=== PATIENT | female | born 1990 ===

== ENCOUNTER → 2018-12-28 | Outpatient (CLI) | payer OTHER ==
[2018-12-30 02:06] LABS: CHLAMYDIA TRACHOMATIS, NAA Negative (Negative); NEISSERIA GONORRHOEAE, NAA Negative (Negative)
== END | disposition home or self-care (01) ==
LOC: LAB SHORT 12:12 → LAB EV 12:12
PROVIDERS: Physician Assistant
DX: N39.0 Urinary tract infection, site not specified (principal); Z20.9 Contact with and (suspected) exposure to unspecified communicable disease
CPT/HCPCS: 87077; 87086; 87186; 87491; 87591

== ENCOUNTER → 2019-04-06 | Outpatient (CLI) | payer OTHER | LOC: LAB SHORT 11:30 → LAB 11:30 | DX: N89.8 Other specified noninflammatory disorders of vagina (principal); N94.89 Other specified conditions associated with female genital organs and menstrual cycle | CPT/HCPCS: 87070; 87205; 87529 ==

== ENCOUNTER → 2019-07-25 | Outpatient (CLI) | payer OTHER | LOC: LAB SHORT 16:39 → LAB 16:39 | DX: R30.9 Painful micturition, unspecified (principal) | CPT/HCPCS: 87086 ==

== ENCOUNTER → 2019-12-26 | Outpatient (CLI) | payer OTHER ==
[2019-12-26 18:09] LABS: Source, Urine Clean Catch
[2019-12-26 19:33] LABS: Bilirubin, Urine Neg (Neg); Blood, Urine Neg (Neg); Glucose Qualitative, Urine Neg (Neg); Ketones, Urine 1+ (Neg); Leukocyte Esterase, Urine Neg (Neg); Nitrite, Urine Neg (Neg); Protein, Urine Neg (Neg); Urobilinogen, Urine NORM (Normal)
[2019-12-26 19:42] LABS: Appearance, Urine Clear (Clear); Color, Urine Yellow (P-Yellow)
== END ==
LOC: LAB 18:06 → LAB SHORT 18:06
PROVIDERS: Registered Nurse Community Health
DX: Z32.01 Encounter for pregnancy test, result positive (principal); N91.2 Amenorrhea, unspecified
CPT/HCPCS: 81003; 87086

== ENCOUNTER → 2020-01-03 | Outpatient (CLI) | payer OTHER ==
[2020-01-05 04:08] LABS: CHLAMYDIA TRACHOMATIS, NAA Negative (Negative); NEISSERIA GONORRHOEAE, NAA Negative (Negative)
== END ==
LOC: PLD 18:02 → LAB SHORT 18:02
PROVIDERS: Registered Nurse Community Health
DX: Z36.89 Encounter for other specified antenatal screening (principal)
CPT/HCPCS: 84702; 87491; 87591; G0123

== ENCOUNTER 2020-01-13 00:10 | Day surgery (SDC) | payer OTHER ==
--- NOTE | 2020-01-13 15:05 | NUR ---
PT TOOK ORAL ZOFRAN 8MG PRIOR TO VISIT TODAY.
--- NOTE | 2020-01-13 15:42 | NUR ---
PT UP TO BR. WANTS BANANA BAG STOPPED. PT WITH SUDDEN NAUSEA AND SHARP HEADACHE. UP TO BR AND VOIED. BACK TO RECLINER TO REST.
== END 2020-01-13 16:32 | disposition home or self-care (01) ==
LOC: ATC 00:10
DX: Z34.91 Encounter for supervision of normal pregnancy, unspecified, first trimester (principal); Z88.5 Allergy status to narcotic agent; Z88.0 Allergy status to penicillin; Z91.040 Latex allergy status; Z88.8 Allergy status to other drugs, medicaments and biological substances; Z3A.00 Weeks of gestation of pregnancy not specified
CPT/HCPCS: 96360; 96361; 96375; J2405; J3411; J3475; J7042; J7120

== ENCOUNTER 2020-01-20 00:18 | Day surgery (SDC) | payer OTHER | END 2020-01-20 16:20 | disposition home or self-care (01) | LOC: ATC 00:18 | DX: Z34.91 Encounter for supervision of normal pregnancy, unspecified, first trimester (principal); Z3A.01 Less than 8 weeks gestation of pregnancy; Z88.5 Allergy status to narcotic agent; Z88.0 Allergy status to penicillin; Z91.040 Latex allergy status | CPT/HCPCS: 96361; 96374; J2405; J7120 ==

== ENCOUNTER → 2020-04-03 | Outpatient (CLI) | payer OTHER ==
[~2020-04-03] MED LIST: ACYC400 PO; Acetaminophen325 M1 PO; BUSP10 PO; DOCU100 PO; PRENATAL TABLE1 EAC2 PO; TUMS500 MG PO
[2020-04-05 06:08] LABS: HBSAG SCREEN Negative (Negative)
== END ==
LOC: LAB SHORT 18:40 → LAB 18:40
PROVIDERS: Registered Nurse Community Health
DX: Z34.90 Encounter for supervision of normal pregnancy, unspecified, unspecified trimester (principal)
CPT/HCPCS: 86592; 86762; 87340

== ENCOUNTER 2020-07-06 00:26 | Day surgery (SDC) | payer OTHER ==
[2020-07-06] MEDS ORDERED: ACYC400 PO (08:18)
[2020-07-06] MEDS ORDERED: Acetaminophen325 M1 PO (08:18)
[2020-07-06] MEDS ORDERED: BUSP10 PO (08:19)
[2020-07-06] MEDS ORDERED: PRENATAL TABLE1 EAC2 PO (08:19)
[2020-08-28] MEDS ORDERED: TUMS500 MG PO (13:52)
[2020-08-28] MEDS ORDERED: DOCU100 PO (13:52)
== END 2020-07-06 09:17 | disposition home or self-care (01) ==
LOC: ATC 00:26
DX: O99.343 Other mental disorders complicating pregnancy, third trimester (principal); F31.9 Bipolar disorder, unspecified; O24.419 Gestational diabetes mellitus in pregnancy, unspecified control; Z3A.30 30 weeks gestation of pregnancy
CPT/HCPCS: 96360; J7120

== ENCOUNTER 2020-07-13 19:47 | Emergency (ER) | payer OTHER ==
[~2020-07-13] VITALS: Ht 162.6 cm; Wt 77.1 kg
[~2020-07-13 19:47] MED LIST changes: -DOCU100 PO; -TUMS500 MG PO
[2020-08-28] MEDS ORDERED: TUMS500 MG PO (13:52)
[2020-08-28] MEDS ORDERED: DOCU100 PO (13:52)
== END 2020-07-13 22:53 | disposition home or self-care (01) ==
LOC: ER 19:47
DX: K08.89 Other specified disorders of teeth and supporting structures (principal); Z79.899 Other long term (current) drug therapy; Z91.040 Latex allergy status; Z88.0 Allergy status to penicillin
CPT/HCPCS: 99282

== ENCOUNTER → 2020-08-06 | Outpatient (CLI) | payer OTHER ==
[~2020-08-06] MED LIST changes: +DOCU100 PO; +TUMS500 MG PO
== END ==
LOC: LAB SHORT 17:20 → PLD 17:20
DX: Z34.91 Encounter for supervision of normal pregnancy, unspecified, first trimester (principal)
CPT/HCPCS: 87081; 87150

== ENCOUNTER → 2022-02-20 | Outpatient (CLI) | payer OTHER ==
[2022-02-20 10:42] LABS: BASOPHILS PERCENT AUTO 0 % (0-2); EOSINOPHILS PERCENT AUTO 0 % (0-6); Hematocrit 45.5 % (33.0-51.0); Hemoglobin 15.4 g/dL (11.5-16.0); IMMATURE GRAN ABSOLUTE AUTO 0.02 K/mm3 (0.00-0.10); IMMATURE GRAN PERCENT AUTO 0 % (0-1); LYMPHOCYTES ABSOLUTE AUTO 0.34 K/mm3 (0.84-5.20); LYMPHOCYTES PERCENT AUTO 6 % (21-46); MONOCYTES ABSOLUTE AUTO 0.28 K/mm3 (0.16-1.47); MONOCYTES PERCENT AUTO 5 % (4-13); Mean Corpuscular HGB 30.6 pg (26.0-34.0); Mean Corpuscular HGB Conc 33.8 g/dL (31.5-36.5); Mean Corpuscular Volume 90 fL (80-100); Mean Platelet Volume 11.4 fL (9.1-12.4); NEUTROPHILS ABSOLUTE AUTO 4.85 K/mm3 (1.96-9.15); NEUTROPHILS PERCENT AUTO 88 % (41-73); Platelet Count 220 K/mm3 (150-400); RDW Coefficient Variation 12.9 % (11.7-14.2); RDW Standard Deviation 42.4 fL (35.1-46.3); Red Blood Cell Count 5.04 M/mm3 (3.80-5.20); White Blood Cell Count 5.49 K/mm3 (4.00-11.30)
[2022-02-20 10:43] LABS: Albumin, Blood 4.2 g/dL (3.4-5.0); Albumin/Globulin Ratio 1.1 (0.8-1.8); Bilirubin, Total 0.7 mg/dL (0.1-1.0); Bun/Creatinine Ratio 25.3 (12.0-20.0); Calcium, Blood 8.5 mg/dL (8.5-10.1); Creatinine, Blood 0.75 mg/dL (0.40-1.00); Globulin, Blood 3.9 g/dL (2.2-4.0); Potassium, Blood 4.2 mmol/L (3.5-5.5); Total Protein, Blood 8.1 g/dL (6.4-8.2)
== END | disposition home or self-care (01) ==
LOC: LAB SHORT 10:28 → LAB 10:28
PROVIDERS: General Practice
DX: K52.9 Noninfective gastroenteritis and colitis, unspecified (principal)
CPT/HCPCS: 80053; 82150; 85025

== ENCOUNTER → 2022-04-10 | Outpatient (CLI) | payer OTHER ==
[2022-04-10 13:51] LABS: Source, Urine Clean Catch
[2022-04-10 15:30] LABS: Appearance, Urine Clear (Clear); Bilirubin, Urine Neg (Neg); Blood, Urine Neg (Neg); Color, Urine Yellow (P-Yellow); Glucose Qualitative, Urine Neg (Neg); Ketones, Urine Neg (Neg); Leukocyte Esterase, Urine Neg (Neg); Nitrite, Urine Neg (Neg); Protein, Urine Neg (Neg); Specific Gravity, Urine 1.015 (1.003-1.022); Urobilinogen, Urine NORM (Normal)
[2022-04-10 16:04] LABS: BASOPHILS ABSOLUTE AUTO 0.01 K/mm3 (0.00-0.23); BASOPHILS PERCENT AUTO 0 % (0-2); EOSINOPHILS ABSOLUTE AUTO 0.04 K/mm3 (0.00-0.68); EOSINOPHILS PERCENT AUTO 1 % (0-6); Hematocrit 40.7 % (33.0-51.0); Hemoglobin 13.7 g/dL (11.5-16.0); IMMATURE GRAN ABSOLUTE AUTO 0.02 K/mm3 (0.00-0.10); IMMATURE GRAN PERCENT AUTO 0 % (0-1); LYMPHOCYTES ABSOLUTE AUTO 1.68 K/mm3 (0.84-5.20); LYMPHOCYTES PERCENT AUTO 24 % (21-46); MONOCYTES ABSOLUTE AUTO 0.46 K/mm3 (0.16-1.47); MONOCYTES PERCENT AUTO 7 % (4-13); Mean Corpuscular HGB 30.6 pg (26.0-34.0); Mean Corpuscular HGB Conc 33.7 g/dL (31.5-36.5); Mean Corpuscular Volume 91 fL (80-100); Mean Platelet Volume 12.5 fL (9.1-12.4); NEUTROPHILS ABSOLUTE AUTO 4.74 K/mm3 (1.96-9.15); NEUTROPHILS PERCENT AUTO 68 % (41-73); Platelet Count 219 K/mm3 (150-400); RDW Coefficient Variation 12.9 % (11.7-14.2); RDW Standard Deviation 42.5 fL (35.1-46.3); Red Blood Cell Count 4.47 M/mm3 (3.80-5.20); White Blood Cell Count 6.95 K/mm3 (4.00-11.30)
[2022-04-11 06:11] LABS: HBSAG SCREEN Negative (Negative)
[2022-04-11 07:11] LABS: HIV AB/P24 AG SCREEN Non Reactive (Non Reactive)
== END | disposition home or self-care (01) ==
LOC: LAB SHORT 13:48
PROVIDERS: Registered Nurse Community Health
DX: Z34.91 Encounter for supervision of normal pregnancy, unspecified, first trimester (principal)
CPT/HCPCS: 80055; 81003; 83036; 84443; 87086; 87389

== ENCOUNTER 2022-05-16 00:28 | Day surgery (SDC) | payer OTHER | END 2022-05-16 10:07 | disposition home or self-care (01) | LOC: ATC 00:28 | DX: O21.9 Vomiting of pregnancy, unspecified (principal); Z3A.00 Weeks of gestation of pregnancy not specified | CPT/HCPCS: J2405; J7120 ==

== ENCOUNTER 2022-05-20 04:39 | Day surgery (SDC) | payer OTHER | END 2022-05-20 12:39 | disposition home or self-care (01) | LOC: ATC 04:39 | DX: R11.2 Nausea with vomiting, unspecified (principal) | CPT/HCPCS: 96361; 96374; C1751; J2405; J7120 ==

== ENCOUNTER 2022-05-23 00:09 | Day surgery (SDC) | payer OTHER | END 2022-05-23 22:39 | disposition home or self-care (01) | LOC: ATC 00:09 | DX: O21.9 Vomiting of pregnancy, unspecified (principal); Z3A.00 Weeks of gestation of pregnancy not specified | CPT/HCPCS: 96374; J2405; J7120 ==

== ENCOUNTER 2022-05-30 00:18 | Day surgery (SDC) | payer OTHER | END 2022-05-30 09:06 | disposition home or self-care (01) | LOC: ATC 00:18 | DX: R11.2 Nausea with vomiting, unspecified (principal) | CPT/HCPCS: J2405; J7120 ==

== ENCOUNTER 2022-06-11 01:55 | Day surgery (SDC) | payer OTHER | END 2022-06-11 12:15 | disposition home or self-care (01) | LOC: ATC 01:55 | DX: R11.2 Nausea with vomiting, unspecified (principal); Z88.0 Allergy status to penicillin; Z88.8 Allergy status to other drugs, medicaments and biological substances; Z91.040 Latex allergy status; Z79.899 Other long term (current) drug therapy | CPT/HCPCS: 96361; 96374; C1751; J2405; J7120 ==

== ENCOUNTER → 2022-11-30 | Outpatient (CLI) | payer OTHER | LOC: LAB 14:55 → LAB SHORT 14:55 | DX: Z34.93 Encounter for supervision of normal pregnancy, unspecified, third trimester (principal); Z3A.00 Weeks of gestation of pregnancy not specified | CPT/HCPCS: 87081; 87150 ==

== ENCOUNTER 2022-12-05 17:20 | Inpatient (IN) | payer OTHER ==
[~2022-12-05] VITALS: Ht 162.6 cm; Wt 80.0 kg
[2022-12-05] VITALS (13 sets, daily range): BP systolic 107–134; BP diastolic 61–89
[2022-12-05 19:52] LABS: BASOPHILS ABSOLUTE AUTO 0.02 K/mm3 (0.00-0.23); BASOPHILS PERCENT AUTO 0 % (0-2); EOSINOPHILS ABSOLUTE AUTO 0.06 K/mm3 (0.00-0.68); EOSINOPHILS PERCENT AUTO 1 % (0-6); Hematocrit 30.6 % (33.0-51.0); Hemoglobin 10.4 g/dL (11.5-16.0); IMMATURE GRAN ABSOLUTE AUTO 0.12 K/mm3 (0.00-0.10); IMMATURE GRAN PERCENT AUTO 1 % (0-1); LYMPHOCYTES ABSOLUTE AUTO 2.83 K/mm3 (0.84-5.20); LYMPHOCYTES PERCENT AUTO 24 % (21-46); MONOCYTES ABSOLUTE AUTO 0.77 K/mm3 (0.16-1.47); MONOCYTES PERCENT AUTO 7 % (4-13); Mean Corpuscular HGB 30.3 pg (26.0-34.0); Mean Corpuscular Volume 89 fL (80-100); Mean Platelet Volume 11.7 fL (9.1-12.4); NEUTROPHILS ABSOLUTE AUTO 7.96 K/mm3 (1.96-9.15); NEUTROPHILS PERCENT AUTO 68 % (41-73); Platelet Count 196 K/mm3 (150-400); RDW Coefficient Variation 14.6 % (11.7-14.2); RDW Standard Deviation 47.5 fL (35.1-46.3); Red Blood Cell Count 3.43 M/mm3 (3.80-5.20); White Blood Cell Count 11.76 K/mm3 (4.00-11.30)
[2022-12-06] VITALS (13 sets, daily range): BP systolic 105–137; BP diastolic 55–90
[2022-12-06 05:06] LABS: Hematocrit 30.3 % (33.0-51.0); Hemoglobin 10.2 g/dL (11.5-16.0); Mean Corpuscular HGB 29.9 pg (26.0-34.0); Mean Corpuscular HGB Conc 33.7 g/dL (31.5-36.5); Mean Corpuscular Volume 89 fL (80-100); Mean Platelet Volume 11.5 fL (9.1-12.4); Platelet Count 178 K/mm3 (150-400); RDW Coefficient Variation 14.6 % (11.7-14.2); RDW Standard Deviation 46.9 fL (35.1-46.3); Red Blood Cell Count 3.41 M/mm3 (3.80-5.20); White Blood Cell Count 16.79 K/mm3 (4.00-11.30)
--- NOTE | 2022-12-06 23:29 | NUR ---
PT request stool softner. notified nurse. no other needs at this time.
[2022-12-07 06:49] VITALS: BP 114/67
[2022-12-07 07:19] VITALS: BP 118/60
[2022-12-07 11:24] VITALS: BP 135/77
[2022-12-07 16:52] VITALS: BP 128/71
--- NOTE | 2022-12-07 16:52 | NUR ---
PT AWAKE. PLANS D/C THIS AFTERNOON. [facility] NB AND SELF CARE WELL. NO QUESTIONS ABOUT D/C INSTRUCTIONS.
--- NOTE | 2022-12-07 18:48 | NUR ---
D/C HOME WITH BABY
== END 2022-12-07 18:50 | disposition home or self-care (01) | DRG 806 ==
LOC: OBS 17:20 → BC 17:20 → OBS 17:32 → BC 17:34
PROVIDERS: ADMIT Registered Nurse Community Health
PROC: 10E0XZZ Delivery of Products of Conception, External Approach (ICD-10-PCS; principal; 2022-12-06)
PROC: 4A0HXCZ Measurement of Products of Conception, Cardiac Rate, External Approach (ICD-10-PCS; 2022-12-06)
PROC: 3E033VJ Introduction of Other Hormone into Peripheral Vein, Percutaneous Approach (ICD-10-PCS; 2022-12-06)
PROC: 3E0R3BZ Introduction of Anesthetic Agent into Spinal Canal, Percutaneous Approach (ICD-10-PCS; 2022-12-06)
PROC: 00HU33Z Insertion of Infusion Device into Spinal Canal, Percutaneous Approach (ICD-10-PCS; 2022-12-06)
DX: O48.0 Post-term pregnancy (principal); O98.52 Other viral diseases complicating childbirth; Z37.0 Single live birth; B00.9 Herpesviral infection, unspecified; Z3A.40 40 weeks gestation of pregnancy; Z88.5 Allergy status to narcotic agent; Z88.0 Allergy status to penicillin; Z88.8 Allergy status to other drugs, medicaments and biological substances; Z88.1 Allergy status to other antibiotic agents; Z91.040 Latex allergy status; Z79.899 Other long term (current) drug therapy
CPT/HCPCS: 36415; 51702; 85025; 85027; 86850; 86900; 86901; A9270; J1885; J2405; J2590; J3010; J7120

== ENCOUNTER → 2024-08-14 | Outpatient (CLI) | payer OTHER | LOC: LAB SHORT 17:29 → LAB 17:29 | DX: L02.91 Cutaneous abscess, unspecified (principal) | CPT/HCPCS: 87070; 87077; 87147; 87186; 87205 ==